=== PATIENT | female | born 1975 | race Caucasian/White ===

== ENCOUNTER 2019-12-12 21:08 | Emergency (ER) | payer OTHER ==
[2019-12-12 21:21] VITALS: BP 125/91
--- NOTE | 2019-12-12 21:40 | UC ---
Respiratory Complaint HPI - HPI Summary HPI Summary: per jewelry technician: "Post nasal drip, irritated throat starting this morning. Pt denies fever, sinus or chest congestion, cough." -painw as worse this monring. now 12/08. thinks maybe it feels like previous strep as child -no rash. no ear pain ? PND started this monring -no cough, no wheezing, no asthma -BF is being seen for ST x 1 wk -no fevers. no known COVID sick contacts o/w. - History of Current Complaint Chief Complaint: UCGeneralIllness Stated Complaint: SORE THROAT Time Seen by Provider: 12/12/19 21:33 Hx Last Menstrual Period: 12/03/19 Pain Intensity: 0 - Allergies/Home Medications Allergies/Adverse Reactions: Allergies Allergy/AdvReac Type Severity Reaction Status Date / Time No Known Allergies Allergy Verified 12/12/19 21:17 Home Medications: Home Medications Cyclobenzaprine TAB* [Flexeril TAB*] 10 mg PO DAILY 11/02/14 [History Confirmed 12/12/19] Naproxen Sodium [Naprelan] 500 mg PO DAILY 11/02/14 [History Confirmed 12/12/19] traMADol TAB* [Ultram*] 50 mg PO Q6HR PRN 11/02/14 [History Confirmed 12/12/19] Lisinopril/Hydrochlorothiazide [Lisinopril-Hctz 20-25 mg Tab] 1 tab PO DAILY [History Confirmed 12/12/19] PMH/Surg Hx/FS Hx/Imm Hx Previously Healthy: Yes Cardiovascular History: Hypertension - Surgical History Surgical History: Yes Surgery Procedure, Year, and Place: uterine ablation - Family History Known Family History: Positive: Other - no asthma - Social History Alcohol Use: None Substance Use Type: None Smoking Status (MU): Former Smoker When Did the Patient Quit Smoking/Using Tobacco: 2007 Review of Systems All Other Systems Reviewed And Are Negative: Yes Constitutional: Positive: Negative. Negative: Fever, Fatigue Skin: Negative: Negative, Rash Eyes: Positive: Negative. Negative: Eye Redness, Photophobia ENT: Positive: Sore Throat. Negative: Ear Ache, Nasal Discharge, Sinus Pain/ Tenderness Respiratory: Positive: Negative. Negative: Shortness Of Breath, Cough Cardiovascular: Negative: Negative, Palpitations, Chest Pain Genitourinary: Positive: Negative. Negative: Dysuria Motor: Positive: Negative Neurovascular: Positive: Negative Musculoskeletal: Positive: Negative Neurological/Mental Status: Positive: Negative Psychological: Positive: Negative Is Patient Immunocompromised?: No Physical Exam Triage Information Reviewed: Yes Appearance: Well-Appearing, No Pain Distress, Well-Nourished Vital Signs: Initial Vital Signs Temp 97.4 F 12/12/19 21:18 Pulse 82 12/12/19 21:18 Resp 17 12/12/19 21:18 BP 125/91 12/12/19 21:18 Pulse Ox 100 12/12/19 21:18 Vital Signs Reviewed: Yes Eye Exam: Normal Eyes: Positive: Conjunctiva Clear. Negative: Discharge ENT Exam: Normal ENT: Positive: Pharyngeal erythema - mild erythema and mild PND. no exudate, TMs normal, Uvula midline. Negative: Nasal congestion, Nasal drainage, TM bulging, TM dull, TM red, Sinus tenderness Neck exam: Normal Neck: Positive: Supple, Nontender, No Lymphadenopathy Respiratory Exam: Normal Respiratory: Positive: Chest non-tender, Lungs clear, Normal breath sounds, No respiratory distress, No accessory muscle use. Negative: Crackles, Rhonchi, Stridor, Wheezing Cardiovascular Exam: Normal Cardiovascular: Positive: RRR Abdominal Exam: Normal Musculoskeletal Exam: Normal Neurological Exam: Normal Psychological Exam: Normal Skin Exam: Normal Skin: Negative: Rashes Respiratory Course/Dx - Course Course Of Treatment: rapid strep - negative -viral. illness is mild and just started today - Differential Dx/Diagnosis Differential Diagnosis/HQI/PQRI: Laryngitis, Other - strep Provider Diagnosis: Pharyngitis Discharge ED - Sign-Out/Discharge Documenting (check all that apply): Patient Departure All imaging exams completed and their final reports reviewed: No Studies - Discharge Plan Condition: Stable Disposition: HOME Patient Education Materials: Pharyngitis (ED) Referrals: Salima Huang NP [Primary Care Provider] - Additional Instructions: strep test is negative -fluids, rest, tylenol for discomfort. -follow up if symptoms increase or persist. - Billing Disposition and Condition Condition: STABLE Disposition: Home
== END 2019-12-12 22:00 | disposition home or self-care (01) ==
LOC: UCCORT 21:08
DX: J02.9 Acute pharyngitis, unspecified (principal); I10 Essential (primary) hypertension; Z79.899 Other long term (current) drug therapy; Z87.891 Personal history of nicotine dependence
CPT/HCPCS: 87651; 99211; G0463